=== PATIENT | female | born 1960 | race Caucasian/White ===

== ENCOUNTER 2019-08-14 09:53 | Emergency (ER) | payer OTHER ==
[2019-08-14] MEDS ORDERED: DIPH/PERTUSS(ACELL)/TETANUS VAC/PF 0.5 ML SYR (>=10YO) IM ONE (11:43)
--- NOTE | 2019-08-14 11:51 | ER Document Report ---
HPI - HPI Time Seen by Provider: 08/14/19 11:32 Course - Vital Signs Vital signs: Temp Pulse Resp BP Pulse Ox 98.1 F 109 H 20 160/89 H 95 08/14/19 09:57 08/14/19 09:57 08/14/19 09:57 08/14/19 09:57 08/14/19 09:57 Discharge - Discharge Clinical Impression: Avulsion, finger tip Qualifiers: Encounter type: initial encounter Qualified Code(s): S61.209A - Unspecified open wound of unspecified finger without damage to nail, initial encounter Condition: Stable
--- NOTE | 2019-08-14 11:56 | ER Document Report ---
ED Medical Screen (RME) - General Chief Complaint: Dog Bite Stated Complaint: FINGER LACERATION Time Seen by Provider: 08/14/19 11:32 - HPI Notes: 08/14/19 11:52 62-year-old female presents to the emergency room for evaluation of her right fourth distal phalangeal tip being bitten off by a dog around 9 AM this morning. Patient states that rabies is up-to-date. Her tetanus is not up-to-date. Bleeding is controlled. Reports some numbness and tingling around affected finger. Denies any fevers or chills. Patient states that wound was exposed to feces and dog saliva. Denies any chest pain shortness of breath, nausea vom iting diarrhea. Patient does have rabies vaccinations on her from dog that had bitten her. I have greeted and performed a rapid initial assessment of this patient. A comprehensive ED assessment and evaluation of the patient, analysis of test results and completion of the medical decision making process will be conducted by additional ED providers. PHYSICAL EXAMINATION: GENERAL: Well-appearing, well-nourished and in no acute distress. HEAD: Atraumatic, normocephalic. EYES: Pupils equal round extraocular movements intact, conjunctiva are normal. ENT: Nares patent NECK: Normal range of motion LUNGS: No respiratory distress Musculoskeletal: Normal range of motion NEUROLOGICAL: Normal speech, normal gait. PSYCH: Normal mood, normal affect. SKIN: Warm, Dry, normal turgor, no rashes or lesions noted. Right fourth distal phalange E with amputation of fingertip proximal to the DIP no active bleeding. 08/14/19 11:55 08/14/19 11:55 - Related Data Allergies/Adverse Reactions: tramadol Adverse Reaction (Verified 08/14/19 11:30) Physical Exam - Vital signs Vitals: Temp Pulse Resp BP Pulse Ox 98.1 F 109 H 20 160/89 H 95 08/14/19 09:57 08/14/19 09:57 08/14/19 09:57 08/14/19 09:57 08/14/19 09:57 Course - Vital Signs Vital signs: Temp Pulse Resp BP Pulse Ox 98.1 F 109 H 20 160/89 H 95 08/14/19 09:57 08/14/19 09:57 08/14/19 09:57 08/14/19 09:57 08/14/19 09:57 Doctor's Discharge - Discharge Clinical Impression: Avulsion, finger tip Qualifiers: Encounter type: initial encounter Qualified Code(s): S61.209A - Unspecified open wound of unspecified finger without damage to nail, initial encounter Condition: Stable
--- NOTE | 2019-08-14 12:13 | RADIOLOGY REPORT (SQ) ---
EXAM DESCRIPTION: FINGER RIGHT COMPLETED DATE/TIME: 08/14/2019 11:59 am REASON FOR STUDY: right 4th digit avulsion from dog bite, r/o fx COMPARISON: None. NUMBER OF VIEWS: Three views. TECHNIQUE: AP, lateral, and oblique images acquired of the right fourth finger. LIMITATIONS: None. FINDINGS: MINERALIZATION: Normal. BONES: Amputation type injury of the tuft of the 4th digit. SOFT TISSUES: Soft tissue defect at the distal 4th phalanx. OTHER: No other significant finding. IMPRESSION: Amputation type injury with comminuted fracture of the distal tuft. COMMENT: SITE OF TRAUMA/COMPLAINT MARKED/STAMP COMPLETED: NOT APPLICABLE. TECHNICAL DOCUMENTATION: JOB ID: [id number] [employer]- All Rights Reserved Reading location - IP/workstation name: [email or web address]
[2019-08-14 15:42] VITALS: BP 148/75
[2019-08-14] MEDS ORDERED: AMOXICILLIN TR/POT CLAVULANATE 500-125 MG TAB PO ONE (15:54)
[2019-08-14] MEDS ORDERED: AMOXICILLIN TRIHYDRATE 500 MG CAPSULE PO ONE (15:54)
--- NOTE | 2019-08-14 15:58 | ER Document Report ---
ED Hand/Wrist Injury - General Chief Complaint: Dog Bite Stated Complaint: FINGER LACERATION Time Seen by Provider: 08/14/19 11:32 Primary Care Provider: JALEN KEN MD [ACTIVE STAFF] - Follow up as needed Notes: Patient is a 62-year-old female who presents to the emergency department with a chief complaint of a finger injury. 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 Patient reports that 1 of the dogs did bite the tip of her right fourth digit. Patient reports an open wound. Patient reports she is possibly exposed to feces and saliva from the bite. Patient reports that the dog's immunizations are up-to-date including rabies. Patient was given a tetanus shot here in triage. Patient denies numbness or tingling. - Related Data Allergies/Adverse Reactions: tramadol Adverse Reaction (Verified 08/14/19 11:30) Past Medical History - Social History Smoking Status: Current Every Day Smoker Lives with: Family Family History: None Patient has suicidal ideation: No Patient has homicidal ideation: No Physical Exam - Vital signs Vitals: Temp Pulse Resp BP Pulse Ox 98.1 F 109 H 20 160/89 H 95 08/14/19 09:57 08/14/19 09:57 08/14/19 09:57 08/14/19 09:57 08/14/19 09:57 - Notes Notes: GENERAL: Well-appearing, well-nourished and in no acute distress. HEAD: Atraumatic, normocephalic. EYES: Pupils equal round and reactive to light, extraocular movements intact, sclera anicteric, conjunctiva are normal. ENT: Nares patent, oropharynx clear without exudates. Moist mucous membranes. NECK: Normal range of motion, supple without lymphadenopathy or JVD. LUNGS: Breath sounds clear to auscultation bilaterally and equal. No wheezes rales or rhonchi. HEART: Regular rate and rhythm without murmurs, rubs or gallops. ABDOMEN: Soft, nontender, normoactive bowel sounds. No guarding, no rebound. No masses appreciated. BACK: No cervical, thoracic, lumbar midline tenderness. No saddle anesthesia, normal distal neurovascular exam. GENITOURINARY: Deferred. EXTREMITIES: Patient does have an open wound noted to the distal aspect of the right digit. The nailbed is intact. There is no active bleeding at this time it does appear to be clotted off. There is no skin flap noted. Patient does have less than 2-second cap refill. Patient has good flexion and extension of the distal part of her finger. NEUROLOGICAL: Cranial nerves II through XII grossly intact. Normal speech, normal gait. PSYCH: Normal mood, normal affect. SKIN: Warm, Dry, normal turgor, no rashes or lesions noted. Course - Re-evaluation Re-evalutation: 08/14/19 16:00 I did speak with Dr. Ken who is our on-call orthopedist who does recommend cleaning the wound well, placing the patient on oral antibiotics and having her follow-up in the office tomorrow. He states he will see the patient at [facility] surgery. He does recommend placing a nonstick dressing over the distal aspect of the finger. I did not inform the patient of this. Patient is soaking her finger currently in Betadine. 08/14/19 16:40 I spoke with [facility] to establish an appointment for the patient tomorrow; 08/15/2019 @ 13:[address] Ken. Patient and made aware. 08/14/19 16:45 Traditional finger webspace block was performed, after cleansing the finger with alcohol. I did insert 2 mL's of Marcaine into the subcutaneous tissue, this was aspirated without blood, patient tolerated well. I did infiltrate the tissues surrounding the dorsal and palmar nerves nerves. Appropriate anesthesia was obtained and the patient's wound was copiously irrigated with 500 mL's of saline and Betadine. Patient tolerated well. We did apply a nonstick dressing and a finger splint to the right fourth digit as discussed with Dr. Ken. Patient was given prescription for pain medication if needed at home. Patient was prophylactically given first dose of antibiotic of Augmentin here in the emergency department. Patient aware to follow-up with Dr. Ken at 130 tomorrow afternoon. - Vital Signs Vital signs: Temp Pulse Resp BP Pulse Ox 98.3 F 92 20 148/75 H 97 08/14/19 15:31 08/14/19 15:31 08/14/19 09:57 08/14/19 15:31 08/14/19 15:31 - Diagnostic Test Radiology reviewed: Reports reviewed Radiology results interpreted by me: 08/14/19 19:18 Finger X-Ray 08/14/19 11:43 IMPRESSION: Amputation type injury with comminuted fracture of the distal tuft. Discharge - Discharge Clinical Impression: Avulsion, finger tip Qualifiers: Encounter type: initial encounter Qualified Code(s): S61.209A - Unspecified open wound of unspecified finger without damage to nail, initial encounter Condition: Stable Disposition: HOME, SELF-CARE Additional Instructions: *Today you are seen in the emergency department after being bit by a dog and obtaining a wound to the right fourth digit. You do have a comminuted fracture at the tip of the finger as well as an amputation. We have started you on oral antibiotics given you your first dose here which is called Augmentin. Please take this twice a day for the next 10 days. We have cleaned the wound vigorously to help prevent infection. You do need to follow-up with orthopedics tomorrow. I did speak with Dr. Ken, he is with [facility] for surgery and states that he will see the patient in the office tomorrow. We have placed a dressing over the wound. Please keep this clean dry and intact until you follow-up with him tomorrow. *I have given you pain medication for your discomfort. This is an oral narcotic. Do not drive or operate heavy machinery while on this medication. Animal Bites Animal bites are often heavily contaminated with bacteria. In spite of thorough cleansing and proper treatment, these wounds frequently become infected. Bite wounds of the hands are especially prone to complications. Bites are dressed, if possible. Large wounds may require suturing after internal cleansing. Because of infection risk, some large wounds must remain unstitched. Your doctor is trained to advise you on the best treatment for your bite. Call the doctor at once if the wound becomes red, swollen, warm, increasingly painful, or if it begins to drain. Danger signs also include red streaks up the involved extremity, swollen glands in the groin or under the arm, or fever and chills. The risk of rabies from domestic animals is very low. Bats, sick animals, and wild animals may expose you to rabies. The physician, or the health department, will inform you if you will need to receive the rabies vaccine. Prescriptions: Amox Tr/Potassium Clavulanate [Augmentin 875-125 Tablet] 1 tab PO BID 10 Days tablet Oxycodone HCl/Acetaminophen [Percocet 5-325 mg Tablet] 1 tab PO Q6 #12 tablet Referrals: JALEN KEN MD [ACTIVE STAFF] - Follow up as needed
[2019-08-14] MEDS ORDERED: BUPIVACAINE HCL 0.25 % INJ/PF (2.5 MG/1 ML) 30 ML VIAL INJ ONE (16:03)
== END 2019-08-14 17:19 | disposition home or self-care (01) ==
LOC: EDBD 09:53 → ER 09:53
DX: S61.209A Unspecified open wound of unspecified finger without damage to nail, initial encounter (principal); S61.214A Laceration without foreign body of right ring finger without damage to nail, initial encounter; W54.0XXA Bitten by dog, initial encounter; Y92.009 Unspecified place in unspecified non-institutional (private) residence as the place of occurrence of the external cause; F17.200 Nicotine dependence, unspecified, uncomplicated; Z23 Encounter for immunization
CPT/HCPCS: 90471; 90715; 99283; A6266